=== PATIENT | male | born 1955 | race Caucasian/White ===

== ENCOUNTER 2020-01-28 16:36 | Outpatient (CLI) | payer OTHER | END 2020-01-28 16:37 | disposition home or self-care (01) | LOC: COV 16:36 | PROVIDERS: ATTEND Family Medicine | DX: R50.9 Fever, unspecified (principal); R61 Generalized hyperhidrosis; R06.02 Shortness of breath; R06.2 Wheezing; M79.10 Myalgia, unspecified site | CPT/HCPCS: 81599 ==

== ENCOUNTER 2020-09-06 15:33 | Outpatient (CLI) | payer MEDICAID ==
--- NOTE | 2020-09-06 16:14 | XRAY Report ---
PROCEDURE: Chest 2 View X-Ray INDICATIONS: OTHER NONSPECIFIC ABNORMAL FINDING OF LUNG FIELD TECHNIQUE: 2 view(s) of the chest. COMPARISON: None. FINDINGS: Surgical changes and devices: None. Lungs and pleura: No pleural effusions or pneumothorax. Lungs are clear. Mediastinum: Mediastinal contours are normal. Heart size is normal. Bones and chest wall: No suspicious bony abnormalities. Soft tissues appear unremarkable. IMPRESSION: Chest without acute cardiopulmonary abnormalities. No focal airspace disease identified. Reviewed by: Brian Meng MD on 09/06/2020 4:13 PM PST Approved by: Brian Meng MD on 09/06/2020 4:13 PM PST Station ID: [id number]
== END 2020-09-06 15:34 | disposition home or self-care (01) ==
LOC: DI 15:33
PROVIDERS: ATTEND Internal Medicine
DX: R91.8 Other nonspecific abnormal finding of lung field (principal)
CPT/HCPCS: 71046